=== PATIENT | female | born 1990 | race Two or more races ===

== ENCOUNTER 2024-11-27 07:44 | Emergency (ER) | payer OTHER, SELFPAY ==
[2024-11-27 07:45] VITALS: BP 187/123; PULSE 87; RESP 16; TEMP 36.6; O2SAT 99; BMI 34.3
--- NOTE | 2024-11-27 08:15 | CT_ITS ---
EXAM: BRAIN/HEAD WITHOUT CONTRAST CLINICAL HISTORY: 33 y/o F with R HEADACHE, HTN. COMPARISON: None. TECHNIQUE: Routine CT imaging of the head without IV contrast. Additional multiplanar reformats were obtained. Dose reduction techniques were used including intermediate exposure control (AEC),iterative reconstruction technique, and/or mA and/or KV dose adjustments based on patient's size. FINDINGS: No acute intracranial hemorrhage or herniation. The batista-white matter interfaces are maintained. The basal cisterns are patent. No ventriculomegaly. Incidental cavum septum pellucidum and vergae. The orbits, visualized paranasal sinuses and mastoids are unremarkable. No acute calvarial fracture or scalp hematoma. CT/Brain/Head without Contrast IMPRESSION: No acute intracranial finding. Reading Location: [id number]
--- NOTE | 2024-11-27 08:16 | EDS_ITS ---
HPI History of Present Illness Chief Complaint: Hypertension Informant: patient Limited: language barrier (Professional Creole foreign language interpreter used) Narrative Narrative: 33-year-old female states she woke up with a headache yesterday morning, she thought she did not get enough sleep or that it was something else, she had no symptoms otherwise it was right-sided retro-orbital, so she drank some water and took some ibuprofen and states the headache eventually went away. She woke up again with it this morning so she went to urgent care, her blood pressure was high and so she was referred here to the ER. She has no other symptoms. No rec ent illness. No aqaa-sed-antdzox medications other than the ibuprofen. No recent injuries. Does not usually get headaches, and did not know her pressure was up until she went to urgent care. States that she was told she had blood pressure that was elevated 1 other episode, she has never been put on blood pressure medication. PFSH PFSH Medical History no medical history no medical history Home Medications ?Medication ?Instructions ?Recorded ?Last Taken ?Type potassium chloride 20 mEq 20 meq PO BID #10 tabs 11/27 Unknown Rx tablet,extended release Allergy/AdvReac Type Severity Reaction Status Date / Time No Known Allergies Allergy Verified 11/27/24 07:45 Social History Smoking Status: Never smoker ROS ROS ED Constitutional Constitutional ED: Denies chills or fever(s) Eyes Eyes: Denies blurry vision, change in vision, diplopia, loss of vision or photophobia ENT ENT ED: Denies rhinorrhea or sore throat Cardiovascular Cardiovascular: Denies chest pain or palpitations Respiratory/Chest Respiratory/Chest: Denies cough or dyspnea Gastrointestinal Gastrointestinal: Denies abdominal pain, diarrhea, nausea or vomiting Genitourinary Genitourinary ED: Denies dysuria or hematuria Musculoskeletal Musculoskeletal: Denies back pain or neck pain Integumentary Denies abscess or rash Neurologic Neurologic: Reports headache(s); Denies paresthesias or weakness Psychiatric Psychiatric: Denies anxiety or suicidal thoughts EXAM Physical Exam Const Vital Signs: 11/27/24 07:45 11/27/24 07:45 11/27/24 08:22 Temperature 97.9 F Temperature Source Temporal Pulse Rate 87 Respiratory Rate 16 Respiratory Pattern Normal Blood Pressure 187/123 H 158/95 H Blood Pressure Mean 144 116 Pulse Ox 99 Oxygen Delivery Method Room Air 11/27/24 09:00 11/27/24 10:00 Temperature 97.8 F Temperature Source Pulse Rate 64 Respiratory Rate 18 Respiratory Pattern Blood Pressure 166/99 H 146/76 H Blood Pressure Mean 121 99 Pulse Ox 99 Oxygen Delivery Method Positive well nourished and well developed General Appearance ED: well developed and NAD HEENT Reports moist mucous membranes normocephalic and atraumatic Eyes PERRL and EOMs intact bilaterally Neck full ROM and supple Resp normal respiratory effort and clear to auscultation bilaterally Cardio regular rate, regular rhythm and no murmurs GI non-tender and non-distended Auscultation: normoactive bowel sounds Palpation: soft Back/Spine no CVA tenderness General Back: other FROM Extremity normal to inspection General Extremety ED: Negative for edema, pulses abnormal or tenderness General Extremity: Negative for edema or pulses abnormal Neuro oriented x3, CN's II-XII intact bilaterally and no sensory deficits noted Sensorium / Orientation: awake and alert Motor Exam: strength 5/5 throughout Skin no rashes or lesions noted and no wounds MDM MDM MDM Narrative Medical decision making narrative: Patient's potassium was very low on her BMP, but her renal function is normal. We obtained a brain CT, I reviewed the images and the report which I agree with, it is negative. In the meantime the patient was given Toradol and an oral clonidine. On reexamination her headache is gone her blood pressures in the 140s. As I discussed with her, it is possible that that headache was caused by elevation of the blood pressure, but the converse could have been the case as well. I recommend close the patient follow-up, she does not have a primary care doctor, so I referred her to the next doctor on the unassigned list, Dr. Andersen. Lab Data Attestation: I reviewed the patient's lab results. Labs: Laboratory Results - last 24 hr 11/27/24 08:33 Sodium 140 Potassium 2.9 L Chloride 104 Carbon Dioxide 25.0 Anion Gap 11 BUN 7 Creatinine 0.70 Estim Creat Clear Calc 135.11 Est GFR (MDRD) Non-Af 118 BUN/Creatinine Ratio 10.6 Glucose 115 H Calcium 9.2 Radiography Diagnostic Testing: Clinical Impression(s) from Imaging Studies Brain CT 11/27/24 08:15 IMPRESSION: No acute intracranial finding. Reading Location: [facility] Discharge Plan Triage Chief Complaint: Hypertension ED Provider: Fco Anand Dx/Rx/DC Orders Clinical Impression: Headache, Episode of hypertension, Acute hypokalemia Instructions: Blood Pressure Check Steps Prescriptions: New potassium chloride 20 mEq tablet extended release 20 meq PO BID Qty: 10 0RF Stand Alone Forms: ED Work / School Excuse Primary Care Provider: Care Physician,No Primary Referrals: Nery Andersen DO [Med Staff - Active Staff] - Print Language: Russian Creole Disposition Disposition: Home, Self Care Discharge Date/Time: 11/27/24 10:10
[2024-11-27 08:22] VITALS: BP 158/95
[2024-11-27 09:00] VITALS: BP 166/99
[2024-11-27 09:10] LABS: Anion Gap 11 (5-15); BUN 7 mg/dL (4-19); BUN/Creat Ratio 10.6 RATIO (10-20); Calcium,Total 9.2 mg/dL (7.6-11.0); Chloride 104 mmol/L (98-108); EST Glomerular Filtration Rate 118 (>60); Estimated Creatinine Clearance 135.11 ml/min (50-250); Glucose 115 mg/dL (70-99); Potassium 2.9 mmol/L (3.3-5.1); Sodium Level 140 mmol/L (133-145)
[2024-11-27] MEDS: cloNIDine HCl 0.1 MG Tablet 0.2 MG PO (09:13)
[2024-11-27] MEDS: Ketorolac 15 MG/ML Vial 30 MG IV (09:13)
[2024-11-27] MEDS: Potassium Chloride Oral Tablet 20 MEQ 40 MEQ PO (09:47)
[2024-11-27 10:00] VITALS: BP 146/76; PULSE 64; RESP 18; TEMP 36.6; O2SAT 99
== END 2024-11-27 10:10 | disposition home or self-care (01) ==
PROVIDERS: Emergency Provider Emergency Medicine; Visit Provider Emergency Medicine
DX: R51.9 Headache, unspecified (principal); I10 Essential (primary) hypertension; E87.6 Hypokalemia
CPT/HCPCS: 70450; 80048; 96374; 96375; 99283

== ENCOUNTER 2025-06-25 23:51 | Emergency (ER) | payer OTHER, SELFPAY ==
[2025-06-25 23:52] VITALS: BP 167/97; PULSE 99; RESP 18; TEMP 37.1; O2SAT 100; BMI 35.0
[2025-06-26 00:27] LABS: Hematocrit 33.7 % (37-47); Hemoglobin 11.0 g/dL (12.0-15.0); Immature Granulocytes Count 0.010 X10^3/uL (0.0-0.0); Mean Corp Hgb Conc 32.6 g/dL (32-36); Mean Corpuscular Volume 85.8 fL (81-99); Mean Platelet Vol. 10.0 fl (6.2-12.0); NRBC Flagged by Analyzer 0 % (0-5); Platelet Count 338 K/mm3 (150-450); RBC Distribution Width CV 14.6 % (11.6-14.6); RBC Distribution Width SD 46.2 fl (35.1-43.9); Red Blood Count 3.93 M/mm3 (4.2-5.4); White Blood Count 6.9 K/mm3 (4.4-11.0)
--- OUTSIDE RECORDS SUMMARY | 2025-06-26 00:33 | XMS RPT_ITS | CCD ---
Demographics Address [address] [place] [address] Work Phone [phone] Preferred Language en Marital Status Single Yarsanism Affiliation Unknown Race Ethnic Group Not or Lati no Author Organization [facility] Care Team Providers Care Household Appliance Repairer Name Role Phone Unavailable Primary Care Provider Debby Godfrey Attending Unavailable Debby Ulrich Referring Unavailable Care Physician, No Primary Primary Care Unava ilFco Payan Attending Unavailable Care Physician, No Primary Primary Care Unava ilNEIL Donald Referring Unavailable CRYSTAL GREEN Attending Unavailable FINESSE TOLEDO Attending Unavailable Medications Current Medications Medication Drug Class(es) Dates Sig (Normalized) Sig (Original) predniSONE 50 mg oral tablet (1 source) Start: 11-27-2024 End: 12-01-2024 take 1 tablet by mouth once daily predniSONE (DELTASONE) 50 mg Indications: Headache, unspecified headache type Take 1 tablet by mouth once daily for 4 days. 4 tablet 11/27/2024 12/01/2024 Active Completed/Discontinued Medications Medication Drug Class(es) Dates Sig (Normalized) Sig (Original) 1 ml ketorolac tromethamine 30 mg/ml injection (1 source) Nonsteroidal Anti-inflammatory Drug, Cyclooxygenase Inhibitor Start: 11-27-2024 End: 11-27-2024 keTORolac 30 mg injection (Toradol) metroNIDAZOLE 500 mg oral tablet (1 source) Nitroimidazole Antimicrobial Start: 08-26-2024 End: 09-02-2024 take 1 tablet by mouth twice daily metroNIDAZOLE (FLAGYL) 500 mg tablet Indications: BV (bacterial vaginosis) Take 1 tablet by mouth two times a day for 7 days. 14 tablet 08/26/2024 09/02/2024 Problems Active Problems Problem Classification Problem Date Documented Da te Episodic/Chronic Essential hypertension (1 source) Essential (primary) hypertension; Translations: [Essential (primary) hypertension] Onset: 12-02-2024 Chronic Headache; including migraine (1 source) Headache; Translations: [Headache, unspecified headache type] 11-27-2024 Episodic Headache; including migraine (1 source) Headache; including migraine; Translations: [Headache, unspecified headache type] Onset: 11-27-2024 Inflammatory diseases of female pelvic organs (1 source) Bacterial vaginosis; Translations: [Acute vaginitis] 08-26-2024 Episodic Menstrual disorders (1 source) Amenorrhea, unspecified; Translations: [Absent menses] Onset: 05-23-2025 Chronic Nonspecific chest pain (1 source) Chest pain, unspecified; Translations: [Chest pain, unspecified] Onset: 04-29-2025 Episodic Other circulatory disease (1 source) Elevated blood-pressure reading without diagnosis of hypertension; Translations: [Elevated blood-pressure reading, without diagnosis of hypertension] 08-25-2024 Episodic Past or Other Problems Problem Classification Problem Date Documented Date Episodic/Chronic Immunizations and screening for infectious disease (2 sources) Patient encounter status; Translations: [Encounter for screening for infections with a predominantly sexual mode of transmission] Onset: 09-14-2024 08-25-2024 Episodic Results Test Name Value Interpretation Reference Range Facil itjami SIERRAon 05-23-2025 CNOV Office Visit (WOUCA) PATRICIA SAMPSON ([id number]) 1990 [facility] Date Time Provider Department 05/23/25 10:45 AM FINESSE TOLEDO WOJUAN During your visit today, we recorded the following information about you: Finesse Toledo APRN.DIRECTOR DIGITAL CATALOGUE 05/23/2025 10:32 AM Signed Patient triaged at urgent care. Here today with missed menses, on off for few months. Denies pain. Denies any possibility of . I will refer to remote sensing research scientist. Allergies As of Date: 05/23/2025 (No Known Allergies) Date Reviewed: 11/27/2024 Reviewed by: Svetlana Cisneros LPN - Fully Assessed Primary Visit Diagnosis:Absent menses [N91.2] Problem List As Of Date: 05/23/2025 (None) Encounter Status:Closed by FINESSE TOLEDO on 05/23/25 Normal [facility] Basic Metabolic Profile (BMP )on 11-27-2024 BUN/CRE 10.6 RATIO Normal 10-20 [facility] Comment on above: Performed By: #### L 500.2500 #### [facility] [address] [place], [address] Calcium [Mass/Vol] 9.2 mg/dL Normal 7.6-11.0 [facility] Comment on above: Performed By: #### L 500.2500 #### [facility] [address] [place], [address] Chloride [Moles/Vol] 104 mmol/L Normal 98-108 [facility] Comment on above: Performed By: #### L 500.2500 #### [facility] [address] [place], [address] CO2 [Moles/Vol] 25.0 mmol/L Normal 21.0-32.0 [facility] Comment on above: Performed By: #### L 500.2500 #### [facility] [address] [place], [address] Creatinine [Mass/Vol] 0.70 mg/dL Normal 0.70-1.20 [facility] Comment on above: Performed By: #### L 500.2500 #### [facility] [address] [place], [address] ECRCL 135.11 ml/min Normal 50-250 [facility] Comment on above: Performed By: #### L 500.2500 #### [facility] [address] [place], [address] GAP 11 Normal 5-15 [facility] Comment on above: Performed By: #### L 500.2500 #### [facility] [address] [place], [address] GFR/1.73 sq M.predicted among non-blacks MDRD (S/P/Bld) [Vol rate/Area] 118 mL/min/{1.73_m2} Normal >60 [facility] Comment on above: Result Comment: mL/m in/1.73m2 CKD-EPI Creatinine Equation (2020) Performed By: #### L 500.2500 #### [facility] [address] [place], [address] Glucose [Mass/Vol] 115 mg/dL High 70-99 [facility] Comment on above: Performed By: #### L 500.2500 #### [facility] [address] [place], [address] Potassium [Moles/Vol] 2.9 mmol/L Low 3.3-5.1 [facility] Comment on above: Performed By: #### L 500.2500 #### [facility] [address] [place], [address] Sodium [Moles/Vol] 140 mmol/L Normal 133-145 [facility] Comment on above: Performed By: #### L 500.2500 #### [facility] [address] [place], [address] Urea nitrogen [Mass/Vol] 7 mg/dL Normal 4-19 [facility] Comment on above: Performed By: #### L 500.2500 #### [facility] [address] [place], [address] Brain/Head without Contrasto n 11-27-2024 Brain/Head without Contrast [facility] Services [address] [place] [address] Brain/Head without Contrast MR#: [id number] Acct: [id number] Name: ADRIÁNCOLEENOFELIA Garcia Rep #: [id number] : 1990 F 33 From: Anuradha Desai nd, MD PCP: Care Physician,No Primary Status: REG ER Study: Brain/Head without Contrast Date of Exam: 11/06 10/29 Exam# [id number] Ordering Dr: Fco Anand MD EXAM: BRAIN/HEAD WITHOUT CONTRAST CLINICAL HISTORY: 33 y/o F with R HEADACHE, HTN. COMPARISON: None. TECHNIQUE: Routine CT imaging of the head without IV contrast. Additional multiplanar reformats were obtained. Dose reduction techniques were used including intermediate exposure control (AEC),iterative reconstruction technique, and/or mA and/or KV dose adjustments based on patient's size. FINDINGS: No acute intracranial hemorrhage or herniation. The batista-white matter interfaces are maintained. The basal cisterns are patent. No ventriculomegaly. Incidental cavum septum pellucidum and vergae. The orbits, visualized paranasal sinuses and mastoids are unremarkable. No acute calvarial fracture or scalp hematoma. CT/Brain/Head without Contrast IMPRESSION: No acute intracranial finding. Reading Location: [id number] CC: Dr. Fco Anand MD; No Primary Care Physician Load Out Person: Signed Normal [facility] CNOVon 11-27-2024 CNOV Office Visit (UCWSTR) PATRICIA SAMPSON ([id number]) 1990 [facility] Date Time Provider Department 11/27/24 7:15 AM CRYSTAL GREEN [facility] During your visit today, we recorded the following information about you: Temperature Pulse Respiration Blood pressure 97.6 degrees 82/minute 18/minute 180/110 Weight 96.5 kg Crystal Green APRN.CNP 11/27/2024 7:37 AM Signed On your visit today your blood pressure was elevated at 180/110. As you also note that your headache feels different from your previous headaches I do feel that you would be better served if you go to the [facility] emergency room for further evaluation. Once you have been discharged from there you can use 1000 mg of Tylenol 3 times a day and or 800 mg of ibuprofen 3 times a day as needed for headache pain. Crystal Green APRN.CNP 11/27/2024 7:43 AM Signed This note was created using [employer]. Subjective Patricia Sampson is a 33 year old female. HPI Patient presents to the ER today complaining of 2 days of an atypical right-sided headache. Patient took 400 mg of ibuprofen yesterday with no relief. Patient states that the headache does not feel similar to her previous headaches. She otherwise denies any vision changes, speech changes, chest pain, shortness of breath. Review of Systems As above Objective BP 180/110 Pulse 82 Temp 36.4 ?C (97.6 ?F) (Tympanic) Resp 18 Wt 96.5 kg (212 lb 11.9 oz) LMP 08/11/2024 (Exact Date) SpO2 100% Physical Exam Vitals and nursing note reviewed. Constitutional: General: She is not in acute distress. Appearance: Normal appearance. She is not ill-appearing. HENT: Head: Normocephalic. Pulmonary: Effort: Pulmonary effort is normal. Musculoskeletal: General: Normal range of motion. Cervical back: Normal range of motion. Skin: General: Skin is warm and dry. Neurological: General: No focal deficit present. Mental Status: She is alert and oriented to person, place, and time. Motor: No weakness. Gait: Gait normal. Psychiatric: Mood and Affect: Mood normal. Behavior: Behavior normal. Assessment and Plan ASSESSMENT/PLAN: 1. Headache, unspecified headache type - ICD9: 784.0, ICD10: R51.9 In review of previous visits her previous blood pressure was 155/114 on August 25, 2024. Patient states that she is new to the area and does not have a PCP. She states that she was instructed on her previous visit to follow-up regarding her elevated blood pressure but she has not done so. She does not take anything at this time for her blood pressure. I did review with her that with her current blood pressure of 180/110 combined with an atypical headache that I felt that she would be better served at the emergency department where she can have further evaluation and testing as deemed necessary. Patient understands and is agreeable and will be transported by her friend. Patient has no neurologic deficits at this time and is appropriate for self transport. - PREDNISONE 50 MG TABLET Crystal Green APRN.DIRECTOR DIGITAL CATALOGUE Allergies As of Date: 11/27/2024 (No Known Allergies) Date Reviewed: 11/27/2024 Reviewed by: Svetlana Cisneros LPN - Fully Assessed Reason for Visit: Headache [52] Cmt: CHRISTIANSON x 2 days Primary Visit Diagnosis:Headache, unspecified headache type [R51.9] Order(s):predniSONE (DELTASONE) 50 mgTake 1 tablet by mouth once daily for 4 days.Disp: 4 tabletRfl: 0 Prescriptions as of 11/27/2024 - predniSONE (DELTASONE) 50 mg Take 1 tablet by mouth once daily for 4 days. Problem List As Of Date: 11/27/2024 (None) Other instructions from your clinician: On your visit today your blood pressure was elevated at 180/110. As you also note that your headache feels different from your previous headaches I do feel that you would be better served if you go to the [facility] emergency room for further evaluation. Once you have been discharged from there you can use 1000 mg of Tylenol 3 times a day and or 800 mg of ibuprofen 3 times a day as needed for headache pain. Prescriptions ordered this encounter Disp Refills Start End KETOROLAC 30 MG/ML (1 ML) INJECTION * 11/27/2024 11/27/2024 Route: INTRAMUSCULA PREDNISONE 50 MG TABLET 4 ta* 0 11/27/2024 12/01/2024 Route: ORAL Sig: Take 1 tablet by mouth once daily for 4 days. Medications Discontinued During This Encounter Prescriptions - keTORolac 30 mg injection (Toradol) (Discontinued) Letter Text Encounter Status:Closed by CRYSTAL GREEN on 11/27/24 Normal [facility] Emergency Department Summary on 11-27-2024 Emergency Department Summary [facility] Medical Records Department [address] [place] [id number] Emergency Department Summary 11/27/24 MR#: [id number] Acct: [id number] Name: PATRICIA SAMPSON Jose Rep #: [id number] : 1990 33 From: Fco Anand MD PCP: Care Physician,No Primary Status:DEP ER Location: ED HPI History of Present Illness Chief Complaint: Hypertension Informant: patient Limited: language barrier (Professional Creole parts interpreter used) Narrative Narrative: 33-year-old female states she woke up with a headache yesterday morning, she thought she did not get enough sleep or that it was something else, she had no symptoms otherwise it was right-sided retro- orbital, so she drank some water and took some ibuprofen and states the headache eventually went away. She woke up again with it this morning so she went to urgent care, her blood pressure was high and so she was referred here to the ER. She has no other symptoms. No recent illness. No xknv-ldu-orgaghp medications other than the ibuprofen. No recent injuries. Does not usually get headaches, and did not know her pressure was up until she went to urgent care. States that she was told she had blood pressure that was elevated 1 other episode, she has never been put on blood pressure medication. PFSH PFSH Medical History no medical history no medical history Home Medications ???Medication ???Instructions ???Recorded ???Last Taken ???Type potassium chloride 20 mEq 20 meq PO BID #10 tabs 11/27/24 Un known Rx tablet,extended release Allergy/AdvReac Type Severity Reaction Status Date / Time No Known Allergies Allergy Verified 11/27/24 07:45 Social History Smoking Status: Never smoker ROS ROS ED Constitutional Constitutional ED: Denies chills or fever(s) Eyes Eyes: Denies blurry vision, change in vision, diplopia, loss of vision or photophobia ENT ENT ED: Denies rhinorrhea or sore throat Cardiovascular Cardiovascular: Denies chest pain or palpitations Respiratory/Chest Respiratory/Chest: Denies cough or dyspnea Gastrointestinal Gastrointestinal: Denies abdominal pain, diarrhea, nausea or vomiting Genitourinary Genitourinary ED: Denies dysuria or hematuria Musculoskeletal Musculoskeletal: Denies back pain or neck pain Integumentary Denies abscess or rash Neurologic Neurologic: Reports headache(s); Denies paresthesias or weakness Psychiatric Psychiatric: Denies anxiety or suicidal thoughts EXAM Physical Exam Const Vital Signs: 11/27/24 07:45 11/27/24 07:45 11/27/24 08:22 Temperature 97.9 F Temperature Source Temporal Pulse Rate 87 Respiratory Rate 16 Respiratory Pattern Normal Blood Pressure 187/123 H 158/95 H Blood Pressure Mean 144 116 Pulse Ox 99 Oxygen Delivery Method Room Air 11/27/24 09:00 11/27/24 10:00 Temperature 97.8 F Temperature Source Pulse Rate 64 Respiratory Rate 18 Respiratory Pattern Blood Pressure 166/99 H 146/76 H Blood Pressure Mean 121 99 Pulse Ox 99 Oxygen Delivery Method Positive well nourished and well developed General Appearance ED: well developed and NAD HEENT Reports moist mucous membranes normocephalic and atraumatic Eyes PERRL and EOMs intact bilaterally Neck full ROM and supple Resp normal respiratory effort and clear to auscultation bilaterally Cardio regular rate, regular rhythm and no murmurs GI non-tender and non-distended Auscultation: normoactive bowel sounds Palpation: soft Back/Spine no CVA tenderness General Back: other FROM Extremity normal to inspection General Extremety ED: Negative for edema, pulses abnormal or tenderness General Extremity: Negative for edema or pulses abnormal Neuro oriented x3, CN's II-XII intact bilaterally and no sensory deficits noted Sensorium / Orientation: awake and alert Motor Exam: strength 5/5 throughout Skin no rashes or lesions noted and no wounds MDM MDM MDM Narrative Medical decision making narrative: Patient's potassium was very low on her BMP, but her renal function is normal. We obtained a brain CT, I reviewed the images and the report which I agree with, it is negative. In the meantime the patient was given Toradol and an oral clonidine. On reexamination her headache is gone her blood pressures in the 140s. As I discussed with her, it is possible that that headache was caused by elevation of the blood pressure, but the converse could have been the case as well. I recommend close the patient follow-up, she does not have a primary care doctor, so I referred her to the next doctor on the unassigned list, Dr. Andersen. Lab Data Attestation: I reviewed the patient's lab results. Labs: Laboratory Results - last 24 hr 11/27/24 (more content not included)... Normal [facility] HBV surface Ag Ser Qlon 02-0 HBV surface Ag Ql (S) Negative Normal Negative [facility] Comment on above: Order Comment: Speci men Type: BLOOD SPECIMEN Ordering Facility: [facility] Address: [address] [place] [address] Performed By: #### 3 1201-7, 5195-3, 20964-8 #### [facility] CLIA [id number] [address] [place] [address] [place] HCV Ab Ser Qlon 09-14-2024 HCV Ab Ql (S) Negative Normal Negative [facility] Comment on above: Order Comment: Speci men Type: BLOOD SPECIMEN Ordering Facility: [facility] Address: [address] [place] [address] Result Comment: The result suggests no evidence of active infection with Hepatitis C virus. Should recent infection be suspected, repeat testing may be considered 4-6 weeks after this draw. Performed By: #### 1 6128-1 #### [facility] CLIA [id number] [address] [place] [address] [place] HIV 1+2 Ab IA Qlon HIV 1 and 2 Ab IA.rapid Nom (S/P/Bld) Normal [facility] Comment on above: Order Comment: Speci men Type: BLOOD SPECIMEN Ordering Facility: [facility] Address: [address] [place] [address] Result Comment: Test not indicated. Performed By: #### 3 1201-7, 5195-3, 75221-4 #### [facility] CLIA [id number] [address] [place] [address] [place] HIV 1+2 Ab+HIV1 p24 Ag IA Ql Non-Reactive Normal Nonreactive [facility] Comment on above: Order Comment: Speci men Type: BLOOD SPECIMEN Ordering Facility: [facility] Address: [address] [place] [address] Performed By: #### 3 1201-7, 5195-3, 93316-1 #### [facility] CLIA [id number] [address] [place] [address] [place] HIV immunoassay testing algorithm interpretation (S/P/Bld) [Interp] Normal [facility] Comment on above: Order Comment: Speci men Type: BLOOD SPECIMEN Ordering Facility: [facility] Address: [address] [place] [address] Result Comment: No e vidence of HIV-1 or HIV-2 infection. Should recent infection be suspected, repeat testing may be considered 2-3 weeks after this draw. [place] Rev. Code 3701.243(E): This information has been disclosed to you from confidential records protected from disclosure by state law. ???You shall make no further disclosure of this information without the specific, written, and informed release of the individual to whom it pertains or as otherwise permitted by state law. A general authorization for the release of medical or other information is not sufficient for the purpose of the release of HIV test results or diagnoses. Performed By: #### 3 1201-7, 5195-3, 89186-3 #### [facility] CLIA [id number] [address] [place] [address] [place] Reagin and Treponema pallidu m IgG and IgM [Interp]on 09-14-2024 T. pallidum IgG+IgM IA Ql (S) Non-Reactive Normal Nonreactive [facility] Comment on above: Order Comment: Speci men Type: BLOOD SPECIMEN Ordering Facility: [facility] Address: [address] [place] [address] Performed By: #### 3 1201-7, 5195-3, 46627-6 #### [facility] CLIA [id number] [address] [place] [address] [place] Reagin+T pallidum IgG+IgM Se rPl-Impon 09-14-2024 Reagin and Treponema pallidum IgG and IgM [Interp] Cannot exclude recent Treponemal infection if specimen collected within 7-10 days after appearance of suspect lesions or 2-3 weeks after an exposure. Clinical correlation is required. Normal [facility] Comment on above: Order Comment: Speci men Type: BLOOD SPECIMEN Ordering Facility: [facility] Address: [address] [place] [address] Performed By: #### 3 1201-7, 5195-3, 87671-5 #### [facility] CLIA [id number] [address] [place] [address] OF [facility] Maximiliano 08-26-2024 CNPRuy Telephone (UCWSTR) PATRICIA SAMPSON ([id number]) 1990 F JESSIKA Date Time Provider Department 08/26/24 STEPHANIE JIMÉNEZ [facility] During your visit today, we recorded the following information about you: Stephanie Jiménez APRN.RAQUEL 08/26/2024 7:34 AM Signed Please advise patient the test was positive for BV. Rx for flagyl was sent to her pharmacy. Other vaginal swab tests were negative. Follow instructions given by provider at visit, f/u with PCP if symptoms persist or worsen. Stephanie Jiménez APRN.Roxanna Sahni MA 08/26/2024 7:50 AM Signed Left message for pt to call back. FIDENCIO Medeiros Melissa, MA 08/27/2024 7:58 AM Signed Left message for patient to return call. FIDENCIO Yoo Melissa, MA 08/28/2024 12:31 PM Signed Left message for patient to return call. FIDENCIO Yoo Alexandra, MA 08/29/2024 6:51 PM Signed As of 08/29/24, patient has NOT picked up Flagyl from [facility] pharmacy and has also NOT returned phone call after 3 days. [place] only has the same phone number on file, will keep trying to call number to reach patient with results and medication at pharmacy. Patient has also not returned to have lab work done that she requested at her appt. FIDENCIO Lowe Melissa, MA 08/31/2024 8:52 AM Signed Left message for patient to return call. FIDENCIO Yoo Sandra, LPN 09/01/2024 9:05 AM Signed Still unable to reach patient.GILSON Laureano Lisa, MA 09/02/2024 4:26 PM Signed Letter printed for patient to call office for results Nery Knapp MA September 02, 2024 4:26 PM Allergies As of Date: 08/26/2024 (No Known Allergies) Date Reviewed: 08/25/2024 Reviewed by: Cata Valle MA - Fully Assessed Reason for Visit: Results [95] Primary Visit Diagnosis:BV (bacterial vaginosis) [N76.0, B96.89] Order(s):[] metroNIDAZOLE (FLAGYL) 500 mg tabletTake 1 tablet by mouth two times a day for 7 days.Disp: 14 tabletRfl: 0 Problem List As Of Date: 08/26/2024 (None) Prescriptions ordered this encounter Disp Refills Start End METRONIDAZOLE 500 MG TABLET 14 t* 0 08/26/2024 09/02/2024 Route: ORAL Sig: Take 1 tablet by mouth two times a day for 7 days. Letter Text Encounter Status:Closed by JAMES SCHMIDT on 10/31/24 Normal [facility] BACTERIAL VAGINOSIS NAATon 0 08-25-2024 Lactobacillus crispatus+gasseri+je nsenii + Gardnerella vaginalis + Atopobium vaginae rRNA JOHNNY+probe Ql (Vag fld) Detected Abnormal Not detected [facility] Comment on above: Order Comment: Speci men Type: SWAB Ordering Facility: [facility] Address: [address] [place] [address] Performed By: #### B VAMP, 78093-3 #### [facility] CLIA [id number] [address] [place] [address] [place] [address] [place] C. trachomatis+N. gonorrhoea e DNA JOHNNY+probe Ql (Unsp spec)on 08-25-2024 C. trachomatis rRNA JOHNNY+probe Ql (Unsp spec) Not detected Normal Not detected [facility] Comment on above: Order Comment: Speci men Type: SWAB Ordering Facility: [facility] Address: [address] [place] [address] Performed By: #### B VAMP, 26690-4 #### [facility] [facility] CLIA [id number] [address] [place] [address] [place] N. gonorrhoeae rRNA JOHNNY+probe Ql (Unsp spec) Not detected Normal Not detected [facility] Comment on above: Order Comment: Speci men Type: SWAB Ordering Facility: [facility] Address: [address] [place] [address] Performed By: #### B VAMP, [id number] #### [facility] CLIA [id number] [address] [place] [address] [place] AYSHA/TRICHOMONAS NAATon 0 08-25-2024 C. glabrata RNA JOHNNY+probe Ql (Vag fld) Not detected Normal Not detected [facility] Comment on above: Order Comment: Speci men Type: SWAB Ordering Facility: [facility] Address: [address] [place] [address] Performed By: #### C VTV #### [facility] CLIA [id number] [address] [place] [address] [place] Aysha sp DNA JOHNNY+probe Ql (Vag fld) Not detected Normal Not detected [facility] Comment on above: Order Comment: Speci men Type: SWAB Ordering Facility: [facility] Address: [address] [place] [address] Performed By: #### C VTV #### [facility] CLIA [id number] [address] [place] [address] [place] T. vaginalis DNA JOHNNY+probe Ql (Unsp spec) Not detected Normal Not detected [facility] Comment on above: Order Comment: Speci men Type: SWAB Ordering Facility: [facility] Address: [address] [place] [address] Performed By: #### C VTV #### [facility] CLIA [id number] [address] [place] [id number] [place] [facility] CNOVon 08-25-2024 CNOV Office Visit (UCWSTR) ADRIÁN GOMEZ ([id number]) 1990 F Date Time Provider Department 08/25/24 2:15 PM NEIL BRUCE [facility] During your visit today, we recorded the following information about you: Temperature Pulse Respiration Blood pressure 98.1 degrees 98/minute 16/minute 155/114 Weight Last Period 101.1 kg 08/11/24 Neil Bruce PA 08/25/2024 3:01 PM Signed This note was created using [employer]. Subjective Adrián Gomez is a 33 year old female. HPI 33-year-old female presents for STD screening. This was done via parts interpreter. Patient states she would like screened for all STDs. She is asymptomatic. She denies any vaginal discharge, bleeding. No concern for . No abdominal pain. No other complaint. No past medical history on file. No past surgical history on file. ALLERGIES Patient has no known allergies. MEDICATIONS No prescriptions on file. No family history on file. Social History Tobacco Use Smoking status: Never Smokeless tobacco: Never Review of Systems Constitutional: Negative for chills and fever. HENT: Negative for congestion, ear pain and sore throat. Respiratory: Negative for cough and shortness of breath. Cardiovascular: Negative for chest pain. Gastrointestinal: Negative for diarrhea and vomiting. Genitourinary: Negative. Objective BP 155/114 Pulse 98 Temp 36.7 ?C (98.1 ?F) (Left Tympanic) Resp 16 Wt 101.1 kg (222 lb 14.2 oz) LMP 08/11/2024 (Exact Date) Physical Exam Vitals and nursing note reviewed. Constitutional: General: She is not in acute distress. Appearance: Normal appearance. She is not toxic-appearing. Cardiovascular: Rate and Rhythm: Normal rate and regular rhythm. Pulmonary: Effort: Pulmonary effort is normal. Breath sounds: Normal breath sounds. Abdominal: General: Abdomen is flat. Palpations: Abdomen is soft. Tenderness: There is no abdominal tenderness. Genitourinary: Comments: Deferred, self swab completed by patient Skin: General: Skin is warm and dry. Neurological: Mental Status: She is alert. Assessment and Plan ASSESSMENT/PLAN: 1. Screening for STD (sexually transmitted disease) - ICD9: V74.5, ICD10: Z11.3 (primary diagnosis) -Patient would like tested for all STDs. She will return tomorrow for lab testing. Self swabs completed today. Please contact patient with results. She does require parts interpreter. - GONORRHEA/CHLAMYDIA NAAT - AYSHA/TRICHOMONAS NAAT - BACTERIAL VAGINOSIS NAAT - SYPHILIS TREPONEMAL W/REFLEX - HIV 1/2 COMBO WITH REFLEX TO DIFFERENTIATION - HEPATITIS C ANTIBODY IA WITH CONFIRMATION - HEPATITIS B SURFACE ANTIGEN 2. Elevated blood pressure reading without diagnosis of hypertension - ICD9: 796.2, ICD10: R03.0 - Encouraged dietary sodium restriction/DASH diet - Recommended regular aerobic exercise. - Recommend home blood pressure monitoring, to bring results in on next visit - Goal of BP <130/80 Diagnosis and treatment plan were discussed and questions were answered to the patient's satisfaction. Pt acknowledged understanding of concepts and follow up plan. Specific signs and symptoms that would indicate the need for higher level of care were discussed in detail warranting prompt ER evaluation. MELVIN Muir Allergies As of Date: 08/25/2024 (No Known Allergies) Date Reviewed: 08/25/2024 Reviewed by: Cata Valle MA - Fully Assessed Reason for Visit: STD [102] Primary Visit Diagnosis:Screening for STD (sexually transmitted disease) [Z11.3] Other Visit Diagnosis:Elevated blood pressure reading without diagnosis of hypertension [R03.0] Order(s):GONORRHEA/C HLAMYDIA NAAT [SQGCCT] Order #: [id number]. #:[id number] AYSHA/TRICHOMONAS NAAT [SQCVTV] Order #: [id number]. #:[id number] BACTERIAL VAGINOSIS NAAT [SQBVAMP] Order #: [id number]. #:[id number] SYPHILIS TREPONEMAL W/REFLEX [SQSYPHTX] Order #: [id number] FUTURE HIV 1/2 COMBO WITH REFLEX TO DIFFERENTIATION [SQHIV12] Order #: [id number] FUTURE HEPATITIS C ANTIBODY IA WITH CONFIRMATION [EJGPHR4R] Order #: [id number] FUTURE HEPATITIS B SURFACE ANTIGEN [SQHBSAG] Order #: [id number] FUTURE Problem List As Of Date: 08/25/2024 (None) Encounter Status:Closed by NEIL BRUCE on 08/25/24 Normal [facility] Vital Signs Date Time Vital Sign Value Performing Clinician Ki desai 11-27-2024 07:15-0400 Body temperature 97.59 [degF] Cyrstal Moomaw CHEMIST.DIRECTOR DIGITAL CATALOGUE Work Phone: [facility] 11-27-2024 07:15-0400 Body weight 96.5 kg Crystal Moomaw CHEMIST.DIRECTOR DIGITAL CATALOGUE Work Phone: [facility] 11-27-2024 07:15-0400 Diastolic blood pressure 110 mm[Hg] Crystal Moomaw CHEMIST.DIRECTOR DIGITAL CATALOGUE Work Phone: [facility] 11-27-2024 07:15-0400 Heart rate 82 /min Crystal Moomaw CHEMIST.DIRECTOR DIGITAL CATALOGUE Work Phone: [facility] 11-27-2024 07:15-0400 Respiratory rate 18 /min Crystal Moomaw CHEMIST.DIRECTOR DIGITAL CATALOGUE Work Phone: [facility] 11-27-2024 07:15-0400 SaO2% (BldA) [Mass fraction] 100 % Crystal Moomaw CHEMIST.DIRECTOR DIGITAL CATALOGUE Work Phone: [facility] 11-27-2024 07:15-0400 Systolic blood pressure 180 mm[Hg] Crystal Moomaw CHEMIST.DIRECTOR DIGITAL CATALOGUE Work Phone: [facility] 08-25-2024 14:30-0500 Body temperature 98.1 [degF] Neil CHARLES Work Phone: [facility] 08-25-2024 14:30-0500 Body weight 101.1 kg Krislyn Aberegg PA Work Phone: [facility] 08-25-2024 14:30-0500 Diastolic blood pressure 114 mm[Hg] Krislyn Aberegg PA Work Phone: [facility] 08-25-2024 14:30-0500 Heart rate 98 /min Krislyn Aberegg PA Work Phone: [facility] 08-25-2024 14:30-0500 Respiratory rate 16 /min Krislyn Aberegg PA Work Phone: [facility] 08-25-2024 14:30-0500 Systolic blood pressure 155 mm[Hg] Krislyn Aberegg PA Work Phone: [facility] Encounters Encounter Date Encounter Type Care Provider Facility Start: 05-23-2025 End: 05-23-2025 ambulatory [facility] Facility:[facility] Start: 04-29-2025 ambulatory [facility] Facility :[facility] Start: 11-27-2024 End: 11-27-2024 Emergency department patient visit Fco Cheng Facility:[facility] Start: 11-27-2024 End: 11-27-2024 Patient encounter procedure Crystal Green APRN.DIRECTOR DIGITAL CATALOGUE Work Phone: [facility] Comment on above: Headache, unspecifie d headache type (Primary Dx) Start: 11-27-2024 End: 11-27-2024 ambulatory CRYSTAL GREEN Facility:[facility] Start: 09-15-2024 End: 09-15-2024 Follow-up encounter Kayley Nassar APRN.DIRECTOR DIGITAL CATALOGUE Work Phone: [facility] Start: 09-14-2024 End: 09-14-2024 ambulatory NEIL Garcia ABEREGG Facility:[facility] Start: 08-26-2024 End: 10-31-2024 Telephone encounter Stephanie Jiménez APRN.DIRECTOR DIGITAL CATALOGUE Work Phone: [facility] Comment on above: Results Start: 08-25-2024 End: 08-25-2024 ambulatory NEIL BRUCE Facility:[facility] Start: 08-25-2024 End: 08-25-2024 Patient encounter procedure [facility] CHARLES [facility] Comment on above: Screening for STD (s exually transmitted disease) (Primary Dx); Elevated blood pressure reading without diagnosis of hypertension Plan of Treatment Date Care Activity Detail Author Start: 08-25-2024 End: 11-24-2024 Hepatitis B virus surface Ag [Presence] in Serum HEPATITIS B SURFACE ANTIGEN Lab Routine Screening for STD (sexually transmitted disease) Expected: 08/25/2024, Expires: 11/24/2024 [facility] Comment on above: Expected: 08/25/2024 , Expires: 11/24/2024 Start: 08-25-2024 End: 11-24-2024 Hepatitis C virus Ab [Presence] in Serum HEPATITIS C ANTIBODY IA WITH CONFIRMATION Lab Routine Screening for STD (sexually transmitted disease) Expected: 08/25/2024, Expires: 11/24/2024 [facility] Comment on above: Expected: 08/25/2024 , Expires: 11/24/2024 Start: 08-25-2024 End: 11-24-2024 HIV 1+2 Ab [Presence] in Serum or Plasma by Immunoassay HIV 1/2 COMBO WITH REFLEX TO DIFFERENTIATION Lab Routine Screening for STD (sexually transmitted disease) Expected: 08/25/2024, Expires: 11/24/2024 [facility] Comment on above: Expected: 08/25/2024 , Expires: 11/24/2024 Start: 08-25-2024 End: 11-24-2024 SYPHILIS TREPONEMAL W/REFLEX SYPHILIS TREPONEMAL W/REFLEX Lab Routine Screening for STD (sexually transmitted disease) Expected: 08/25/2024, Expires: 11/24/2024 [facility] Work Phone: Comment on above: Expected: 08/25/2024 , Expires: 11/24/2024 Start: 04-07-2024 Covid-19 Vaccine () Covid-19 Vaccine () [facility] Start: 04-07-2024 Influenza vaccination Influenza Vacc ine (#1) [facility] Start: 12-08-2012 Screening for malignant neoplasm of cervix Cervical Cancer Screening [facility] Start: 12-08-2010 Hepatitis B Vaccine (1 of 3 - 19+ 3-dose series) Hepatitis B Vaccine (1 of 3 - 19+ 3-dose series) [facility] Start: 12-08-2010 Urine microalbumin profile DTaP,Tdap,Td Vaccine (1 - Tdap) [facility] Start: 12-08-2009 Anxiety Screening Anxiety Screening [facility] Start: 12-08-2009 Depression Screening Depression Scre ening [facility] Start: 12-08-2009 Hepatitis C screening Hepatitis C Sc reening [facility] Start: 12-08-2009 HIV screening HIV Screening [facility] BACTERIAL VAGINOSIS NAAT BACTERIAL VAGINOSIS NAAT Lab Routine Screening for STD (sexually transmitted disease) 08/25/2024 3:24 PM EST [facility] AYSHA/TRICHOMONAS NAAT AYSHA/TRICHOMONAS NAAT Lab Routine Screening for STD (sexually transmitted disease) 08/25/2024 3:24 PM EST [facility] Chlamydia trachomatis+Neisseria gonorrhoeae DNA [Presence] in Unspecified specimen by JOHNNY with probe detection GONORRHEA/CHLAMYDIA NAAT Lab Routine Screening for STD (sexually transmitted disease) 08/25/2024 3:24 PM [facility] Payers Date Payer Category Payer Self-pay 2024 Unknown [id number] 2024 Private Health Insurance [id number] 2024 Unknown [id number] Unknown [id number] Unknown [id number] Social History Date Type Detail Facility Start: [facility] Start: 08-25-2024 Tobacco use and exposure Smoke less tobacco non-user [facility] Start: 08-25-2024 History of Social function [facility] Start: 08-25-2024 Tobacco use panel [facility] Start: 1990 Sex assigned at Not on file [facility] Clinical Notes 08-25-2024 to 05-23-2025 Crystal Green APRN.DIRECTOR DIGITAL CATALOGUE - 11/27/2024 7:37 AM EDTPatient InstructionsTelephone Encounter - Aria Espana MA - 09/15/2024 3:22 PM ESTTelephone Encounter - Aria Espana MA - 09/15/2024 3:22 PM EST Note Date & Type Note Facility 05-23-2025 Note HNO ID: [id number] Author: FINESSE TOLEDO APRN.DIRECTOR DIGITAL CATALOGUE Service: ? Author Type: Nurse Practitioner Type: Progress Notes Filed: 05/23/2025 10:32 Note Text: Patient triaged at urgent care. Here today with missed menses, on off for few months. Denies pain. Denies any possibility of . I will refer to remote sensing research scientist. [facility] 11-27-2024 Note HNO ID: [id number] Author: CRYSTAL GREEN APRN.DIRECTOR DIGITAL CATALOGUE Service: ? Author Type: Nurse Practitioner Type: Progress Notes Filed: 11/27/2024 07:43 Note Text: This note was created using [employer]. Subjective Patricia Sampson is a 33 year old female. HPI Patient presents to the ER today complaining of 2 days of an atypical right-sided headache. Patient took 400 mg of ibuprofen yesterday with no relief. Patient states that the headache does not feel similar to her previous headaches. She otherwise denies any vision changes, speech changes, chest pain, shortness of breath. Review of Systems As above Objective BP 180/110 Pulse 82 Temp 36.4 ?C (97.6 ?F) (Tympanic) Resp 18 Wt 96.5 kg (212 lb 11.9 oz) LMP 08/11/2024 (Exact Date) SpO2 100% Physical Exam Vitals and nursing note reviewed. Constitutional: General: She is not in acute distress. Appearance: Normal appearance. She is not ill-appearing. HENT: Head: Normocephalic. Pulmonary: Effort: Pulmonary effort is normal. Musculoskeletal: General: Normal range of motion. Cervical back: Normal range of motion. Skin: General: Skin is warm and dry. Neurological: General: No focal deficit present. Mental Status: She is alert and oriented to person, place, and time. Motor: No weakness. Gait: Gait normal. Psychiatric: Mood and Affect: Mood normal. Behavior: Behavior normal. Assessment and Plan ASSESSMENT/PLAN: 1. Headache, unspecified headache type - ICD9: 784.0, ICD10: R51.9 In review of previous visits her previous blood pressure was 155/114 on August 25, 2024. Patient states that she is new to the area and does not have a PCP. She states that she was instructed on her previous visit to follow-up regarding her elevated blood pressure but she has not done so. She does not take anything at this time for her blood pressure. I did review with her that with her current blood pressure of 180/110 combined with an atypical headache that I felt that she would be better served at the emergency department where she can have further evaluation and testing as deemed necessary. Patient understands and is agreeable and will be transported by her friend. Patient has no neurologic deficits at this time and is appropriate for self transport. - PREDNISONE 50 MG TABLET Crystal Green APRN.[facility] 11-27-2024 History of Presen t illness Narrative This note was created using [employer]. Subjective Patricia Sampson is a 33 year old female. HPI Patient presents to the ER today complaining of 2 days of an atypical right-sided headache. Patient took 400 mg of ibuprofen yesterday with no relief. Patient states that the headache does not feel similar to her previous headaches. She otherwise denies any vision changes, speech changes, chest pain, shortness of breath. Review of Systems As above Objective BP 180/110 Pulse 82 Temp 36.4 C (97.6 F) (Tympanic) Resp 18 Wt 96.5 kg (212 lb 11.9 oz) LMP 08/11/2024 (Exact Date) SpO2 100% Physical Exam Vitals and nursing note reviewed. Constitutional: General: She is not in acute distress. Appearance: Normal appearance. She is not ill-appearing. HENT: Head: Normocephalic. Pulmonary: Effort: Pulmonary effort is normal. Musculoskeletal: General: Normal range of motion. Cervical back: Normal range of motion. Skin: General: Skin is warm and dry. Neurological: General: No focal deficit present. Mental Status: She is alert and oriented to person, place, and time. Motor: No weakness. Gait: Gait normal. Psychiatric: Mood and Affect: Mood normal. Behavior: Behavior normal. Assessment and Plan ASSESSMENT/PLAN: 1. Headache, unspecified headache type - ICD9: 784.0, ICD10: R51.9 In review of previous visits her previous blood pressure was 155/114 on August 25, 2024. Patient states that she is new to the area and does not have a PCP. She states that she was instructed on her previous visit to follow-up regarding her elevated blood pressure but she has not done so. She does not take anything at this time for her blood pressure. I did review with her that with her current blood pressure of 180/110 combined with an atypical headache that I felt that she would be better served at the emergency department where she can have further evaluation and testing as deemed necessary. Patient understands and is agreeable and will be transported by her friend. Patient has no neurologic deficits at this time and is appropriate for self transport. - PREDNISONE 50 MG TABLET Crystal Green APRN.CNP documented in this encounter [facility] 11-27-2024 Instructions Crystal Green APRN.CNP - 11/27/2024 7:37 AM EDT On your visit today your blood pressure was elevated at 180/110. As you also note that your headache feels different from your previous headaches I do feel that you would be better served if you go to the [facility] emergency room for further evaluation. Once you have been discharged from there you can use 1000 mg of Tylenol 3 times a day and or 800 mg of ibuprofen 3 times a day as needed for headache pain. documented in this encounter [facility] 09-15-2024 Telephone encounter Note Patient given results and verbalized understanding of instructions given. Aria Espana MA [facility] 09-15-2024 Miscellaneous Notes Patient given results and verbalized understanding of instructions given. Aria Espana MA Please notify that all blood work is negative for HIV, Hepatitis, and RPR (syphyllis). Follow up with PCP as needed. Kayley Nassar APRN.CNP documented in this encounter [facility] 09-15-2024 Telephone encounter Note Please notify that all blood work is negative for HIV, Hepatitis, and RPR (syphyllis). Follow up with PCP as needed. Kayley Nassar APRN.CNP [facility] Work Phone: 09-02-2024 Telephone encounter Note Letter printed for patient to call office for results Nery Knapp MA September 02, 2024 4:26 PM [facility] 09-02-2024 Miscellaneous Notes Letter printed for patient to call office for results Nery Knapp MA September 02, 2024 4:26 PM Still unable to reach patient.Svetlana Cisneros LPN Left message for patient to return call. Aria Espana MA As of 08/29/24, patient has NOT picked up Flagyl from [facility] pharmacy and has also NOT returned phone call after 3 days. [facility] only has the same phone number on file, will keep trying to call number to reach patient with results and medication at pharmacy. Patient has also not returned to have lab work done that she requested at her appt. James Schmidt MA Left message for patient to return call. Aria Espana MA Left message for patient to return call. Aria Espana MA Left message for pt to call back. Roxanna Alvares MA Please advise patient the test was positive for BV. Rx for flagyl was sent to her pharmacy. Other vaginal swab tests were negative. Follow instructions given by provider at visit, f/u with PCP if symptoms persist or worsen. Stephanie Jiménez APRN.DIRECTOR DIGITAL CATALOGUE documented in this encounter [facility] 09-01-2024 Telephone encounter Note Still unable to reach patient.Svetlana Cisneros LPN [facility] 08-31-2024 Telephone encounter Note Left message for patient to return call. Aria Espana MA [facility] 08-29-2024 Telephone encounter Note As of 08/29/24, patient has NOT picked up Flagyl from [facility] pharmacy and has also NOT returned phone call after 3 days. [facility] only has the same phone number on file, will keep trying to call number to reach patient with results and medication at pharmacy. Patient has also not returned to have lab work done that she requested at her appt. James Schmidt MA [facility] 08-28-2024 Telephone encounter Note Left message for patient to return call. Aria Espana MA [facility] 08-27-2024 Telephone encounter Note Left message for patient to return call. Aria Espana MA [facility] 08-26-2024 Telephone encounter Note Left message for pt to call back. Roxanna Alvares MA [facility] 08-26-2024 Telephone encounter Note Please advise patient the test was positive for BV. Rx for flagyl was sent to her pharmacy. Other vaginal swab tests were negative. Follow instructions given by provider at visit, f/u with PCP if symptoms persist or worsen. Stephanie Jiménez APRN.RAQUEL [facility] 08-25-2024 Note HNO ID: [id number] Author: NEIL BRUCE PA Service: ? Author Type: Physician Telephone Engineer Type: Progress Notes Filed: 08/25/2024 15:01 Note Text: This note was created using [employer]. Subjective Adrián Gomez is a 33 year old female. HPI 33-year-old female presents for STD screening. This was done via parts interpreter. Patient states she would like screened for all STDs. She is asymptomatic. She denies any vaginal discharge, bleeding. No concern for . No abdominal pain. No other complaint. No past medical history on file. No past surgical history on file. ALLERGIES Patient has no known allergies. MEDICATIONS No prescriptions on file. No family history on file. Social History Tobacco Use Smoking status: Never Smokeless tobacco: Never Review of Systems Constitutional: Negative for chills and fever. HENT: Negative for congestion, ear pain and sore throat. Respiratory: Negative for cough and shortness of breath. Cardiovascular: Negative for chest pain. Gastrointestinal: Negative for diarrhea and vomiting. Genitourinary: Negative. Objective BP 155/114 Pulse 98 Temp 36.7 ?C (98.1 ?F) (Left Tympanic) Resp 16 Wt 101.1 kg (222 lb 14.2 oz) LMP 08/11/2024 (Exact Date) Physical Exam Vitals and nursing note reviewed. Constitutional: General: She is not in acute distress. Appearance: Normal appearance. She is not toxic-appearing. Cardiovascular: Rate and Rhythm: Normal rate and regular rhythm. Pulmonary: Effort: Pulmonary effort is normal. Breath sounds: Normal breath sounds. Abdominal: General: Abdomen is flat. Palpations: Abdomen is soft. Tenderness: There is no abdominal tenderness. Genitourinary: Comments: Deferred, self swab completed by patient Skin: General: Skin is warm and dry. Neurological: Mental Status: She is alert. Assessment and Plan ASSESSMENT/PLAN: 1. Screening for STD (sexually transmitted disease) - ICD9: V74.5, ICD10: Z11.3 (primary diagnosis) -Patient would like tested for all STDs. She will return tomorrow for lab testing. Self swabs completed today. Please contact patient with results. She does require parts interpreter. - GONORRHEA/CHLAMYDIA NAAT - AYSHA/TRICHOMONAS NAAT - BACTERIAL VAGINOSIS NAAT - SYPHILIS TREPONEMAL W/REFLEX - HIV 1/2 COMBO WITH REFLEX TO DIFFERENTIATION - HEPATITIS C ANTIBODY IA WITH CONFIRMATION - HEPATITIS B SURFACE ANTIGEN 2. Elevated blood pressure reading without diagnosis of hypertension - ICD9: 796.2, ICD10: R03.0 - Encouraged dietary sodium restriction/DASH diet - Recommended regular aerobic exercise. - Recommend home blood pressure monitoring, to bring results in on next visit - Goal of BP <130/80 Diagnosis and treatment plan were discussed and questions were answered to the patient's satisfaction. Pt acknowledged understanding of concepts and follow up plan. Specific signs and symptoms that would indicate the need for higher level of care were discussed in detail warranting prompt ER evaluation. MELVIN Muir [facility] 08-25-2024 History of Presen t illness Narrative This note was created using [employer]. Subjective Adrián Gomez is a 33 year old female. HPI 33-year-old female presents for STD screening. This was done via parts interpreter. Patient states she would like screened for all STDs. She is asymptomatic. She denies any vaginal discharge, bleeding. No concern for . No abdominal pain. No other complaint. No past medical history on file. No past surgical history on file. ALLERGIES Patient has no known allergies. MEDICATIONS No prescriptions on file. No family history on file. Social History Tobacco Use Smoking status: Never Smokeless tobacco: Never Review of Systems Constitutional: Negative for chills and fever. HENT: Negative for congestion, ear pain and sore throat. Respiratory: Negative for cough and shortness of breath. Cardiovascular: Negative for chest pain. Gastrointestinal: Negative for diarrhea and vomiting. Genitourinary: Negative. Objective BP 155/114 Pulse 98 Temp 36.7 C (98.1 F) (Left Tympanic) Resp 16 Wt 101.1 kg (222 lb 14.2 oz) LMP 08/11/2024 (Exact Date) Physical Exam Vitals and nursing note reviewed. Constitutional: General: She is not in acute distress. Appearance: Normal appearance. She is not toxic-appearing. Cardiovascular: Rate and Rhythm: Normal rate and regular rhythm. Pulmonary: Effort: Pulmonary effort is normal. Breath sounds: Normal breath sounds. Abdominal: General: Abdomen is flat. Palpations: Abdomen is soft. Tenderness: There is no abdominal tenderness. Genitourinary: Comments: Deferred, self swab completed by patient Skin: General: Skin is warm and dry. Neurological: Mental Status: She is alert. Assessment and Plan ASSESSMENT/PLAN: 1. Screening for STD (sexually transmitted disease) - ICD9: V74.5, ICD10: Z11.3 (primary diagnosis) -Patient would like tested for all STDs. She will return tomorrow for lab testing. Self swabs completed today. Please contact patient with results. She does require parts interpreter. - GONORRHEA/CHLAMYDIA NAAT - AYSHA/TRICHOMONAS NAAT - BACTERIAL VAGINOSIS NAAT - SYPHILIS TREPONEMAL W/REFLEX - HIV 1/2 COMBO WITH REFLEX TO DIFFERENTIATION - HEPATITIS C ANTIBODY IA WITH CONFIRMATION - HEPATITIS B SURFACE ANTIGEN 2. Elevated blood pressure reading without diagnosis of hypertension - ICD9: 796.2, ICD10: R03.0 - Encouraged dietary sodium restriction/DASH diet - Recommended regular aerobic exercise. - Recommend home blood pressure monitoring, to bring results in on next visit - Goal of BP <130/80 Diagnosis and treatment plan were discussed and questions were answered to the patient's satisfaction. Pt acknowledged understanding of concepts and follow up plan. Specific signs and symptoms that would indicate the need for higher level of care were discussed in detail warranting prompt ER evaluation. MELVIN Muir documented in this encounter [facility] Evaluation note Diagnosis Screening for STD (sexually transmitted disease)- Primary Screening examination for venereal disease Elevated blood pressure reading without diagnosis of hypertension [facility] Diagnosis BV (bacterial vaginosis)- Primary Vaginitis and vulvovaginitis, unspecified [facility] Diagnosis Headache, unspecified headache type- Primary documented in this encounter [facility] Summary Purpose Family History No Family History Records FoundNo Family History Records Found Advance Directives No Advanced Directives Records FoundNo Advanced Directives Records Found Additional Source Comments Source Comments (unrecognize d section and content) In the event this informatio n is protected by the Federal Confidentiality of Alcohol and Drug Abuse Patient Records regulations: The Federal rules restrict any use of the information to criminally investigate or prosecute any alcohol or drug abuse patient.[facility] the event this information is protected by the Federal Confidentiality of Alcohol and Drug Abuse Patient Records regulations: The Federal rules restrict any use of the information to criminally investigate or prosecute any alcohol or drug abuse patient.[facility] the event this information is protected by the Federal Confidentiality of Alcohol and Drug Abuse Patient Records regulations: The Federal rules restrict any use of the information to criminally investigate or prosecute any alcohol or drug abuse patient.[facility] the event this information is protected by the Federal Confidentiality of Alcohol and Drug Abuse Patient Records regulations: The Federal rules restrict any use of the information to criminally investigate or prosecute any alcohol or drug abuse patient.[facility] Reason for Visit (unrecogniz ed section and content) Reason Comments STD Reason Onset Date Comments Results 09/15/2024 Reason Comments Results Reason Comments Headache CHRISTIANSON x 2 days INFORMATION SOURCE (unrecogn ized section and content) DATE CREATED AUTHOR 04/30/2025 [facility] DATE CREATED AUTHOR AUTHOR'S ABY ATION 05/28/2025 [facility] FOR RECORDS PERTAINING TO PATIENTS WHO ARE OR HAVE BEEN ENROLLED IN A CHEMICAL DEPENDENCY/SUBSTANCEABUSE PROGRAM, SOME INFORMATION MAY BE OMITTED. This clinical summary was aggregated from multiple sources. Caution should be exercised in using it in the provision of clinical care. This summary normalizes information from multiple sources, and as a consequence, information in this document may materially change the coding, format and clinical context of patient data. In addition, data may be omitted in some cases. CLINICAL DECISIONS SHOULD BE BASED ON THE PRIMARY CLINICAL RECORDS. [facility]. provides no warranty or guarantee of the accuracy or completeness of information in this document.
[2025-06-26 00:35] LABS: Prothrombin Time (Protime)PT. 13.7 SECONDS (11.7-14.9)
--- NOTE | 2025-06-26 00:35 | ED.VIS.FEGU ---
HPI HPI - Female History of Present Illness Chief Complaint: Vag Bleeding Informant: patient Narrative Narrative: Patient is a 34-year-old female who reports a past medical history of hypertension. She states that her menstrual cycles have always been regular but over the last 2 months she has not had a cycle and now has reported bleeding daily for the last 14 days. She denies any history of bleeding disorder or blood thinner use. She denies any concern for . She denies any vaginal discharge or concern for STD. However because of the persistent symptoms she presents for evaluation [facility] Medical History (Updated 06/26/25 @ 07:[address] Moustapha Mcclelland DO) HTN (hypertension) Home Medications Medication Instructions Recorded Last Taken Type amlodipine 10 mg tablet 10 mg PO DAILY 06/25/25 Unknown History Allergy/AdvReac Type Severity Reaction Status Date / Time No Known Allergies Allergy Verified 06/25/25 23:59 Social History Smoking Status: Never smoker ROS ROS ED Constitutional Constitutional ED: Denies chills or fever(s) Eyes Eyes: Denies change in vision ENT ENT ED: Denies sore throat Cardiovascular Cardiovascular: Reports other Details: Negative syncope ; Denies chest pain Respiratory/Chest Respiratory/Chest: Denies cough or dyspnea Gastrointestinal Gastrointestinal: Denies abdominal pain, diarrhea, nausea or vomiting Genitourinary Genitourinary ED: Reports other Details: Positive vaginal bleeding ; Denies dysuria Musculoskeletal Musculoskeletal: Denies myalgias Integumentary Denies rash Neurologic Neurologic: Denies headache(s) Hematologic/Lymphatic Hematologic/Lymphatic: Denies easy bleeding or easy bruising EXAM Physical Exam Const Vital Signs: 06/25/25 23:52 06/26/25 01:53 Temperature 98.7 F 98.7 F Temperature Source Oral Pulse Rate 99 79 Respiratory Rate 18 16 Blood Pressure 167/97 H 139/94 H Blood Pressure Mean 120 109 Pulse Ox 100 100 Positive well nourished and well developed General Appearance ED: well developed HEENT HEENT Narrative: Normocephalic atraumatic Eyes PERRL and EOMs intact bilaterally General Eye ED: Negative for scleral icterus Neck supple Resp normal respiratory effort and clear to auscultation bilaterally Cardio regular rate and regular rhythm Rate: other Other Details: Heart is regular rate and rhythm without murmurs rubs or gallop Radial and carotid pulses are equal and symmetric GI normal to inspection, nondistended, normoactive bowel sounds, soft to palpation, non-tender, non-distended and no masses GI Narrative: No voluntary guarding or rigidity or pulsatile mass No peritoneal signs Auscultation: normoactive bowel sounds Palpation: soft Narrative: External genitalia is normal Speculum exam reveals a scant amount of dark red blood within the vaginal vault totally approximately 5 mL/less than a shot glass. Cervix is closed. No vaginal laceration. No discharge noted. No cervical motion tenderness or adnexal pain noted Back/Spine no CVA tenderness Extremity normal to inspection and full ROM Neuro oriented x3, CN's II-XII intact bilaterally and no sensory deficits noted Sensorium / Orientation: alert Motor Exam: strength 5/5 throughout Psych mental status grossly normal Skin no rashes or lesions noted Skin Narrative: Capillary fill is less than 3 seconds MDM MDM MDM Narrative Medical decision making narrative: Patient presented to the ER hypertensive otherwise with stable vitals. With the report of persistent vaginal bleeding there is concern for acute blood loss anemia thrombocytopenia derangement to her bleeding time or complication. Secondary to this basic labs were obtained. Labs revealed technically anemia at a hemoglobin of 11 but this is well above transfusion value and otherwise no thrombocytopenia or derangement to her bleeding time. test is also negative going against complication. Patient's history and exam is most consistent with dysfunctional uterine bleeding. As physical exam shows scant amount of blood within the vaginal vault I do not feel the need for an emergent ultrasound to assess for potential uterine fibroid or ovarian cyst. The patient does not have abdominal pain/pelvic pain on physical exam and her blood pressure has stabilized without treatment and at this time she is not having significant active bleeding. Therefore the patient can follow-up with [facility] as an outpatient to discuss further testing and is otherwise safe for discharge History & Record Review Discussion w/independent historian: Patient Lab Data Attestation: I reviewed the patient's lab results. Labs: Laboratory Results - last 24 hr 06/26/25 00:20 WBC 6.9 RBC 3.93 L Hgb 11.0 L Hct 33.7 L MCV 85.8 MCH 28.0 MCHC 32.6 RDW Std Deviation 46.2 H RDW Coeff of Marvin 14.6 Plt Count 338 MPV 10.0 Immature Gran % (Auto) 0.100 Neut % (Auto) 37.6 L Lymph % (Auto) 53.4 H Wirt % (Auto) 7.3 Eos % (Auto) 1.2 Baso % (Auto) 0.4 Absolute Neuts (auto) 2.6 Absolute Lymphs (auto) 3.68 Nucleated RBC % 0 PT 13.7 INR 1.0 APTT 32.7 Sodium 140 Potassium 2.9 L Chloride 104 Carbon Dioxide 26.7 Anion Gap 9 BUN 17 Creatinine 0.76 Estim Creat Clear Calc 124.56 Est GFR (MDRD) Non-Af 106 BUN/Creatinine Ratio 22.7 H Glucose 110 H Calcium 9.6 Serum , Qual NEGATIVE Discharge Plan Triage Chief Complaint: Vag Bleeding ED Provider: Moustapha Mcclelland Dx/Rx/DC Orders Clinical Impression: Dysfunctional uterine bleeding, Hypertension Instructions: ED Dysfunctional Uterine Bleeding Prescriptions: No Action amlodipine 10 mg tablet 10 mg PO DAILY Primary Care Provider: Debby Ulrich Referrals: Malu Russo MD [Med Staff - Active Staff, Obstetrics-Gynecology (OBGYN)] Referral Note: Dysfunctional uterine bleeding Debby Ulrich, CARPET JACK-C [Primary Care Provider, Family Practice] Activity Restrictions/Additional Instructions: Please follow-up with [facility] to further assess the cause of your dysfunctional uterine bleeding. You will typically need hormone level checks as well as a potential ultrasound. They may need to place you on control pills to regulate your hormones which then can regulate your menstrual cycle. Return to the ER should you have any further concerns Print Language: Pearl Breaux Disposition Disposition: Home, Self Care Discharge Date/Time: 06/26/25 01:58
[2025-06-26 00:36] LABS: Partial Thromboplast Time 32.7 Seconds (24.1-36.2)
[2025-06-26 00:39] LABS: Internal QC Validated? YES +Cl - CLEAR BKGD; Pregnancy, Serum, hCG Quali. NEGATIVE Negative; Record Kit Lot#, Serum Preg. 0000980607
[2025-06-26 01:53] VITALS: BP 139/94; PULSE 79; RESP 16; TEMP 37.1; O2SAT 100
[2025-06-26 05:06] LABS: Anion Gap 9 (5-15); BUN 17 mg/dL (4-19); BUN/Creat Ratio 22.7 RATIO (10-20); Calcium,Total 9.6 mg/dL (7.6-11.0); Carbon Dioxide 26.7 mmol/L (21.0-32.0); Chloride 104 mmol/L (98-108); Estimated Creatinine Clearance 124.56 ml/min (50-250); Glucose 110 mg/dL (70-99); Potassium 2.9 mmol/L (3.3-5.1)
== END 2025-06-26 01:58 | disposition home or self-care (01) ==
PROVIDERS: Emergency Provider Emergency Medicine; PCP Nurse Practitioner Family; Visit Provider Emergency Medicine
DX: N93.8 Other specified abnormal uterine and vaginal bleeding (principal); I10 Essential (primary) hypertension; Z79.899 Other long term (current) drug therapy
CPT/HCPCS: 80048; 84703; 85025; 85610; 85730; 99283; A4216